=== PATIENT | male | born 1995 | race Caucasian/White ===

== ENCOUNTER 2021-07-10 09:26 | Outpatient (RCR) | payer OTHER, SELFPAY ==
--- NOTE | 2021-07-13 08:25 | PC.NURSE ---
Patient called the community sports coordinator this morning Yue Montgomery and let her know he will not be attending groups at [facility] as he does not feel this is a good fit for him and is taking a different route to get the help he feels he needs. [facility] staff aware.
== END 2021-07-13 09:28 | disposition home or self-care (01) ==
LOC: HO.PHPA 09:26
PROVIDERS: Visit Provider Psychiatry & Neurology Psychiatry
DX: F33.2 Major depressive disorder, recurrent severe without psychotic features (principal); F41.1 Generalized anxiety disorder; F42.9 Obsessive-compulsive disorder, unspecified; F12.90 Cannabis use, unspecified, uncomplicated
CPT/HCPCS: 90791

== ENCOUNTER 2024-05-18 14:13 | Outpatient (AMB) | payer OTHER, SELFPAY ==
--- NOTE | 2024-05-18 15:23 | MHC.OFFVIS ---
Vital Signs 05/18/24 15:24 Height 6 ft 3 in Weight 168 lb BMI 21.0 Pulse 98 Pulse Source Pulse Oximeter Pulse Oximetry (%) 98 Oxygen Delivery Method Room Air Intake Visit Reasons: Intake Allergies No Known Allergies Allergy (Verified 05/18/24 15:29) HPI HPI Intake: Details: He is interested in treatment for AUD. 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 He lives with roommates. His PCP is Martinez Ortiz of [facility] in [place]. He denies any other substance and no gambling. He has been drinking since election in December. He is interested in partial progarm He has OCD and takes Anafranil [facility] Medical History (Updated 05/18/24 @ 17:31 by Nelly Russ MD) Alcohol use disorder, moderate, dependence OCD (obsessive compulsive disorder) Social History Household Members: Significant Other and Other Household Members Other:: housemates Review of Systems Const All systems reviewed & are unremarkable except as noted in HPI and below Physical Exam Vital Signs: Last Vital Signs Pulse 98 05/18/24 15:24 Pulse Ox 98 05/18/24 15:24 Oxygen Delivery Method Room Air 05/18/24 15:24 BMI result Body Mass Index 21.0 Const General: cooperative Results AMB 14 Panel Urine Drug Screen Urine Marijuana (THC) Positive Last Edit by Kathy Grayson CMA on 05/18/24 15:32 Urine Cocaine Negative Last Edit by Kathy Grayson CMA on 05/18/24 15:32 Urine Morphine Negative Last Edit by Kathy Grayson CMA on 05/18/24 15:32 Urine Methamphetamine Negative Last Edit by Kathy Grayson CMA on 05/18/24 15:32 Urine Amphetamine Negative Last Edit by Kathy Grayson CMA on 05/18/24 15:32 Urine Benzodiazepine Negative Last Edit by Kathy Grayson CMA on 05/18/24 15:32 Urine Barbiturates Negative Last Edit by Kathy Grayson CMA on 05/18/24 15:32 Urine Methadone Negative Last Edit by Kathy Grayson CMA on 05/18/24 15:32 Urine Buprenorphine Negative Last Edit by Kathy Grayson CMA on 05/18/24 15:32 Urine Tricyclic Antidepressant Positive Last Edit by Kathy Grayson CMA on 05/18/24 15:32 Urine MDMA Negative Last Edit by Kathy Grayson CMA on 05/18/24 15:32 Urine Oxycodone Negative Last Edit by Kathy Grayson CMA on 05/18/24 15:32 Urine Phencyclidine Negative Last Edit by Kathy Grayson CMA on 05/18/24 15:32 Urine Propoxyphene Negative Last Edit by Kathy Grayson CMA on 05/18/24 15:32 Results Reviewed Results Reviewed: Laboratory Last Values POC Urine Buprenorphine Negative 05/18/24 15:31 POC Urine Morphine Negative 05/18/24 15:31 POC Urine Oxycodone Negative 05/18/24 15:31 POC Urine Methadone Negative 05/18/24 15:31 POC Urine Propoxyphene Negative 05/18/24 15:31 POC Urine Barbiturates Negative 05/18/24 15:31 POC U Tricyclic Antidpr Positive 05/18/24 15:31 POC Urine PCP Negative 05/18/24 15:31 POC Ur Amphetamines Negative 05/18/24 15:31 POC Ur Methamphetamine Negative 05/18/24 15:31 POC Urine MDMA Negative 05/18/24 15:31 POC Ur Benzodiazepine Negative 05/18/24 15:31 POC Urine Cocaine Negative 05/18/24 15:31 POC Ur Marijuana (THC) Positive 05/18/24 15:31 Assessment & Plan Assessment & Plan (1) Alcohol use disorder, moderate, dependence: Comment: He has no withdrawals or seizures He also vapes Code(s): F10.20 - Alcohol dependence, uncomplicated Category: Medical Plan thiamine,folate,mvi Naltrexone 50 mg po daily,probably shot in future. Orders: Orders AMB 14 Panel Urine Drug Screen Today Z51.81 - Encounter for therapeutic drug level monitoring Coding Level of Care Code New Pt Level 4 (85654) Diagnoses Alcohol use disorder, moderate, dependence F10.20
[2024-05-18 15:24] VITALS: PULSE 98; O2SAT 98; BMI 21.0
== END 2024-05-18 16:01 | disposition home or self-care (01) ==
PROVIDERS: Visit Provider Internal Medicine
DX: F10.20 Alcohol dependence, uncomplicated (principal); Z51.81 Encounter for therapeutic drug level monitoring
CPT/HCPCS: 99204

== ENCOUNTER → 2024-05-18 14:13 | Outpatient (BNVA) | payer OTHER, SELFPAY | DX: F10.20 Alcohol dependence, uncomplicated (principal) | CPT/HCPCS: 80307; 99202 ==

== ENCOUNTER 2024-06-15 15:48 | Outpatient (AMB) | payer OTHER, SELFPAY ==
--- OUTSIDE RECORDS SUMMARY | 2024-06-15 15:50 | XMS_ITS | Clinical Summary ---
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 FLUoxetine (PROZAC) 10 MG capsule TAKE 3 TABLETS BY MOTUH DAILY 90 capsule 10/27/2015 Active cloNIDine HCl (CATAPRES) 0.1 MG tablet TAKE 1 TABLET BY MOUTH TWICE A DAY 60 tablet 10/27/2015 Active Social History Tobacco Use Types Packs/Day Years Used Date Smoking Tobacco: Never Assessed Sex and Gender Information Value Date Recorded Sex Assigned at Not on file Legal Sex Male 4:22 PM EST Gender Identity Not on file Sexual Orientation Not on file Plan of Treatment Not on file [facility] [employer] Care Teams Rotary Rig Engine Operator Relationship Specialty Start Date End Date Ok Bradley MD PCP - General Family Medicine 07/04/14
--- OUTSIDE RECORDS SUMMARY | 2024-06-15 15:50 | XMS_ITS | Data Portability ---
Author Organization [facility] [address] Address [address] [place] [address] Assessment No assessment recorded. Plan of Treatment Reminders Order Date Submit Date Provider Last Modified By Organization Details Last Modified Time Details Appointments None recorded. Lab rapid strep group A, throat 2023 024 [email or web address] [facility] [address], [address] [place], [address], 18:27:56 streptococc us group A, culture, throat 2023 024 [place] [facility] ([facility], [address] [place] [address], [place], [address], 14:05:49 Referral None recorded. Procedures None recorded. Surgeries None recorded. Imaging None recorded. Medication Orders None recorded. Patient TargetsNo targets recorded. Patient Instructions Encounter Date Encounter Id Patient Instructions Last Modified By Organization Details Last Modified Time 10/07/2023 [id number] sore throat: car e instructions [email or web address] Not available 10/07/2023 18:27:55 Reason for Referral None Reported. Results Created Date Observation Date Name Description Value Unit Range Abnormal Flag Note LastModifiedBy Organization Detail LastModifiedTime 10/07/19 24 10/09/2023 BETA STREP GP A CULTU RE beta strep gp A culture COMMEN T abnormal Beta- hemol ytic colon ies, not group A Strep tococ cus isola ana m. Refer ence Range : Negat mattie Penic illin and ampic illin are drugs of choi e for treat ment of beta- hemol ytic strep tococ claudio infec tions . Susce ptibi lity testi ng of penic illin s and other beta- lacta m agent s appro hamzah by the FDA for treat ment of beta- hemol ytic strep tococ claudio infec tions need not be perfo rmed routi bar becau se nonsu scept ible isola rambo are extre guanaco rare in any beta- hemol ytic strep tococ cus and have not been repor ana m for Strep tococ cus pyoge daniel (grou p A). (CLSI ) Not Available [facility] ([facility]) [address] [facility], [place], [address], 10/09/2023 14:05:49 10/07/1910/07/2023 rapid strep group A, throa t Unknown Analyte negati ve Not Available [facility] [address] [place], [address], 10/07/2023 18:22:30 10/07/1910/07/2023 rapid strep group A, throa t Unknown Analyte yes Not Available _ [facility] [address] [place], [address], 10/07/2023 18:22:30 Result Notes None recorded. Problems No Known Problems Medical Equipment None Reported. Allergies No known drug allergies Medications Name Sig Start Date Stop Date Status Note LastModified by Organization Details LastModified Time amoxicillin 500 mg capsule Take 1 capsule every 12 hours by oral route as directed for 10 days, for Strep throat. 2023 active Not Available Not Available Not Avai lable estradiol 2 mg tablet TAKE TWO TABLETS BY MOUTH EVERY DAY active Not Available Not Available No t Available Vitals Date Recorded Body height Body weight Oxygen saturation Oxygen saturation in Arterial blood by Pulse oximetry Pain severity - 0-10 verbal numeric rating [Score] - Reported Heart rate Respiratory rate Body temperature Systolic blood pressure Diastolic blood pressure Provider Name and Address Organization Details Last Updated DateTime 4 190.5 cm 44185.8 9 g 98 % 98 % 3 77 /min 18 /min 97.8 [degF] 112 mm[Hg] 77 mm[Hg] Rita Kang PA - [facility] 18:19:52 Social History Question Answer Notes LastModified by Organizat ion Details LastModified Time Tobacco Smoking Status Never Smoker [facility] Bates - [facility] 10/07/2023 18:22:17 What Is Your Level Of Alcohol Consumption? None Information not available 10/07/2023 Are You Currently Employed? Yes [email or web address] Information not available 10/07/2023 Have You Had A Flu Shot This Season? Yes [email or web address] Information not available 10/07/2023 Are You Passively Exposed To Smoke? No [email or web address] Information no t available 10/07/2023 Do You Use Any Illicit Or Recreational Drugs? No [email or web address] Information not available 10/07/2023 Have You Recently Traveled Abroad? No [email or web address] Information not available 10/07/2023 Do You Or Have You Ever Used Any Other Forms Of Tobacco Or Nicotine? No [email or web address] Information not available 10/07/2023 Sex: Unknown Functional Status None recorded. Mental Status None recorded. Family History Nothing Reported. Medical History No medical history recorded. Past Encounters Encounter ID Performer Location Encounter Start Date Encounter Closed Date Diagnosis/Indication Diagnosis SNOMED-CT Code Diagnosis ICD10 Code Diagnosis Note [id number] [facility] [address] [facility] [address] [place] [address] 10/07/2023 18:05:56 10/07/2023 18:29:26 Acute pharyngitis 323710708 J02.9 Based on your Presentati on, Exam, and Lab Testing you are being diagnosed with Pharyngiti s. Your Rapid Strep Test was Negative. Most likely your sore throat is being caused by a virus, post nasal drip, or silent acid reflux. I am going to send a Throat Culture to the lab for you to make sure you don't have a different form of strep in your throat. This will take about 72 hours for that result to return. We will contact you if it positive - if for some reason you don't get a copy of your results or hear from us - please contact our office. The following are my other recommenda tions to help with symptoms and is important for this diagnosis: 1. Take Ibuprofen or Tylenol if you do not have any allergies to these medication s. If you take a blood thinner you should not take NSAIDS like Ibuprofen. These medication will help with the inflammati on in your respirator y tract which should help the cough. (I would alternate between Tylenol 650 mg and your Ibuprofen 600 mg every 4 hours)2. Steroid nasal sprays like Flonase or Nasonex (or generic) can help with postnasal drainage2. Do not take any Cold Medication s that have a Decongesta nt in it - this will dry out your throat and make the sore throat worse.3. Drinking Hot Tea with honey can help coat and soothe your throat. I would be seen again if you develop any of the following symptoms.1 . Fever > 101.02. Stiff neck - where you can't turn your neck3. Trouble swallowing your saliva - drooling4. Swelling of a lymph node in your throat that is painful to touch5. Difficulty breathing6 . Severe Headache Thank you for using [facility] today, please feel free to contact our office if you have any questions or concerns. Health Concerns Section Related Observation LastModified by Organization Detai ls LastModified Time None Recorded Concern Status LastModified by Organization Details LastModified Time None Recorded Advance Directives Directive None Recorded Payers Insurance Date Sequence Insurance Name Policy Number Policy Price Covered Member ID Price Member ID Guarantor Name 10/07/2023 1 [facility] [place] [facility] Faustino Zepeda [id number] Faustino Zepeda Notes Date Note Type Note Provider Name and Address Organization Details Recorded Time 10/07/2023 text/html 28 y/o male here with sore throat for the past day, 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
--- NOTE | 2024-06-15 15:53 | MHC.OFFVIS ---
Intake Visit Reasons: MAT Allergies No Known Allergies Allergy (Verified 06/16/24 14:27) HPI HPI MAT: Details: He is depressed because Thuy is President and he doesnt have a girlfriend. He has no SI or HI He doesnt want to wait in ER for crisis. He has a therapist. He doesnt want any additional medication. [facility] Medical History Alcohol use disorder, moderate, dependence OCD (obsessive compulsive disorder) Social History Household Members: Significant Other and Other Household Members Other:: housemates Smoked in Last 30 Days: No Use of substances other than those prescribed or required for medical reasons: Yes Substance Use Type: Marijuana Substance Use Frequency: Occasionally Advance Directives: No Advance Directives Information Provided: No Review of Systems Const All systems reviewed & are unremarkable except as noted in HPI and below Physical Exam Const General: cooperative Assessment & Plan Assessment & Plan (1) Alcohol use disorder, moderate, dependence: Comment: He denies alcohol use at this time,bothered by depression. Code(s): F10.20 - Alcohol dependence, uncomplicated Category: Medical Plan Come to ER for psych intake for depression if not feeling better or if SI or HI. Otherwise see therapist and see us as scheduled. Coding Level of Care Code Est Pt Level 3 (80122) Diagnoses Alcohol use disorder, moderate, dependence F10.20
== END 2024-06-15 17:45 | disposition home or self-care (01) ==
LOC: HO.HCC 15:49
PROVIDERS: Visit Provider Internal Medicine
DX: F10.20 Alcohol dependence, uncomplicated (principal)
CPT/HCPCS: 99213

== ENCOUNTER → 2024-06-15 15:48 | Outpatient (BNVA) | payer OTHER, SELFPAY | PROVIDERS: Visit Provider Internal Medicine | DX: F10.20 Alcohol dependence, uncomplicated (principal) | CPT/HCPCS: 99212 ==

== ENCOUNTER 2024-06-16 14:08 | Inpatient (IN) | payer OTHER, SELFPAY ==
[2024-06-16 14:23] VITALS: BP 136/96; PULSE 125; RESP 18; TEMP 36.1; O2SAT 99; BMI 24.4
[2024-06-16 14:29] VITALS: RESP 16
--- NOTE | 2024-06-16 14:32 | PC.NURSE ---
Pt presents to the emergency department today via EMS from [facility] in [place]. Pt reports that he went to [facility] in [place] to seek out ACCS (respite). When asked why he was seeking ACCS, he originally stated Its none of your [employer] business . 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 Pt reports a history of inpatient [place], [place] [facility] [place] He also endorses no history of going to ACCS. Per S12a, pt was making suicidal statements with a plan, which he denies currently. S12 also reports that patient has not been eating and has been very impulsive Pt endorses daily drinking for the better part of the last year. He denies a history of alcohol withdrawal, reports last drink was yesterday. Pt currently agitated, pacing around BH pod, refusing to engage in meaningful conversation with this RN Denies suicidal ideation, homicidal ideation, hallucinations of any form
--- NOTE | 2024-06-16 14:52 | PC.NURSE ---
Addendum entered by Cammie Yeager 06/16/24 14:57: pt has quarter size bruise on center of the forehead which he did not have prior to hitting his head on the ground. Pt refusing to allow this RN to evaluate Original Note: Pt observed to be hitting his head on the wall, pt then stopped on his own but then sat down on the floor and started hitting his head on the floor. Pt redirected by security sammy and this RN to bedside
--- NOTE | 2024-06-16 14:54 | ED_ITS ---
HPI - Psych General Chief Complaint: Psychiatric Symptoms Stated Complaint: SECTION 12 Time Seen by Provider: 06/16/24 14:54 Source: patient and RN notes reviewed Mode of arrival: ambulatory Limitations: no limitations History of Present Illness ED Provider: Varsha Pulido PA-C [facility] Narrative: This is a 29-year-old male, with a history of OCD, and alcohol use disorder, who presents emergency department on section 12 via EMS from [facility] in [place]. on my assessment, patient states that he would like to be discharged, and he is unsure why he is here. He states that he presented to [facility] with hopes into getting into a respite, at that time the see HD staff members had called 911. patient reports that he has no suicidal or homicidal ideation. No auditory visual hallucinations. He states daily alcohol use, typically drinks 4 beers per day, no history of alcohol withdrawal. He also uses marijuana, no other drug use. Denies any physical symptoms. 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 When asked about why he was doing this, I asked if he was frustrated and he agreed. He has no vision changes, no severe headache or dizziness. No LOC. No nausea or vomiting. No other complaints or concerns at this time. Relieving factors: none Exacerbating factors: none Context: recent alcohol abuse Treatments prior to arrival: other ( Section 12) Related Data Home Medications ?Medication ?Instructions ?Recorded ?Confirmed clomipramine 75 mg capsule 150 mg PO BEDTIME 06/16/24 06/16/24 Allergies Allergy/AdvReac Type Severity Reaction Status Date / Time No Known Allergies Allergy Verified 06/16/24 14:27 Review of Systems 2 Review of Systems: Yes all other systems are reviewed and are negative Constitutional: Constitutional: Reports as per [facility] Past Medical History Medical History (Updated 05/18/24 @ 17:31 by Nelly Russ MD) Alcohol use disorder, moderate, dependence OCD (obsessive compulsive disorder) Social History Social History Household Members: Significant Other and Other Household Members Other:: housemates Smoked in Last 30 Days: No Use of substances other than those prescribed or required for medical reasons: Yes Substance Use Type: Marijuana Substance Use Frequency: Occasionally Physical Exam 2 Vital Signs: Vital Signs: Last Vital Signs Temp 97.0 F 06/16/24 14:23 Pulse 125 H 06/16/24 14:23 Resp 16 06/16/24 14:29 BP 136/96 H 06/16/24 14:23 Pulse Ox 99 06/16/24 14:23 O2 Del Method Room Air 06/16/24 14:23 BMI result Body Mass Index 24.4 Const: General: cooperative, comfortable and no acute distress O rientation/consciousness: patient oriented x3 Limitations: no limitations HEENT: Head: Yes normal to inspection, Yes normocephalic and Yes atraumatic Ears: hearing grossly normal bilaterally General nose exam: Normal external nose present Face and sinus: Yes normal facial exam Mouth: Normal oral and palatal mucosa present, oropharynx normal and moist mucous membranes Throat: Yes posterior oropharynx normal Eyes: General: appearance normal, both eyes and all related structures E yelids: Yes eyelids normal Conjunctivae: conjunctivae normal Sclerae: s clerae normal Pupils: Equal, round and reactive pupils present EOM: EOMs intact bilaterally Neck: Neck: Yes normal visual inspection, Yes full ROM and Yes no lymphadenopathy Lymphatic: no lymphadenopathy noted Chest: Chest palpation & inspection: normal inspection of the chest Resp: Effort & Inspection: normal respiratory effort and able to speak in complete sentences Auscultation: clear to auscultation bilaterally, no crackles, no rales, no rhonchi and no wheezes Cardio: Rate: regular rate Rhythm: regular rhythm Heart sounds: S1 normal heart sound present and S2 normal heart sound present GI: Inspection: Yes normal to inspection Skin: Other: middle of forehead there is a superficial abrasion noted, no active bleeding. General skin exam: no rashes or lesions noted Trauma: no lacerations or abrasions Wounds: no wounds Neuro: General: patient oriented x3 and moves all extremities Cranial nerves: Yes Equal, round and reactive pupils present Extrem: General: Yes normal to inspection Right upper extremity: normal to inspection Left upper extremity: normal to inspection Right lower extremity: normal to inspection Left lower extremity: normal to inspection Psych: Appearance: well kempt Mental Status: mental status grossly normal Speech and movement: Pressured speech present Affect: Anxious affect present, Hostile affect present and Blunted affect present Attitude: Guarded attititude/behavior present and Avoids eye contact (attititude/behavior) T hought process: Normal thought process present Insight: Limited insight present (Psych) Judgement: Limited judgement present (Psych) Medications Administered Discontinued Medications Generic Name Dose Route Start Last Admin Trade Name Unique PRN Reason Stop Dose Admin Lorazepam 2 mg 06/16/24 17:36 06/16/24 17:45 Lorazepam 1 Mg Tablet PO 06/16/24 17:37 2 mg ONCE ONE Administration Medical Decision Making Medical Decision Making [facility] Narrative: This is a 29-year-old male, with a history of OCD, who presents emergency department on section 12 from [facility] in [place]. On arrival, patient is hypertensive at 136/96, pulse 125. Patient is guarded, stating that he wants to be discharge and he is not sure why he is here. he has no suicidal or homicidal ideation. Auditory or visual hallucination. General daily alcohol use, last use yesterday, no history of alcohol withdrawal. History of marijuana use, other baez no other drug use. He has no physical complaints. Differential diagnoses include anxiety, depression, medication noncompliance, SI, HI, Psychosis. Will obtain labs, UA, and patient will be seen by the care team. Course: 2 - labs returned, no leukocytosis, stable H&H, chemistry revealing slight elevation in T bilirubin, otherwise unremarkable. Urine without any signs of infection. Positive marijuana. patient placed in physician observation pending psychiatric bed search. 1824 - patient is starting to escalate, coronary staff and threatening staff, he was agreeable to taking oral Ativan. Approximately 30 minutes later, he is now escalating, placing mattress and front of camera, trying to jump off his bed, given this, patient medicated with Zyprexa 5 mg IM. Pending care team consultation. We will continue to monitor. Differential Diagnosis Differential Diagnoses: The differential diagnosis associated with the presentation includes See above Admission/Observation Consideration of admission/observation: Escalation of care including admission/observation considered Lab Data [facility] Lab Attestation statement: I reviewed the patient's lab results. See MDM and course 06/16/24 14:58 06/16/24 14:58 Labs: Lab Results 06/16/24 06/16/24 Range/Units 14:58 15:17 WBC 9.1 (4.8-10.8) X10*3/uL RBC 5.23 (4.60-5.80) X10*6/uL Hgb 16.3 (14.0-18.0) g/dl Hct 45.1 (42.0-52.0) % MCV 86.2 (80.0-98.0) fL MCH 31.2 (27.0-33.0) pg MCHC 36.1 H (31.0-36.0) g/dl RDW 11.7 (11.0-16.0) % Plt Count 282 (160-400) X10*3/uL MPV 9.1 L (9.4-12.4) fL Immature Gran % (Auto) 0.4 (0.0-0.4) % Neut % (Auto) 64.7 (45-73) % Lymph % (Auto) 25.4 (20-40) % [place] % (Auto) 7.9 (2-11) % Eos % (Auto) 1.2 (0-4) % Baso % (Auto) 0.4 (0-2) % Lymph # (Auto) 2.3 (1.2-4.9) X10*3/uL [place] # (Auto) 0.7 (0.1-1.2) X10*3/uL Eos # (Auto) 0.1 (0.0-0.4) X10*3/uL Baso # (Auto) 0.0 (0.0-0.2) X10*3/uL Abs Immat Gran (auto) 0.04 H (0.00-0.03) X10*3/uL Absolute Neuts (auto) 5.9 (2.0-8.3) x10*3/uL Absolute Nucleated RBC 0.000 (0.0-0.012) X10*3/uL Nucleated RBC % (auto) 0.0 (0.0-0.2) /100WBC Sodium 140 (135-145) mmol/L Potassium 3.7 (3.3-5.1) mmol/L Chloride 100 (96-108) mmol/L Carbon Dioxide 28 (22-29) mmol/L Anion Gap 16 (12-20) BUN 12 (9-16) mg/dL Creatinine 0.85 (0.5-1.4) mg/dL Estim Creat Clear Calc 139.4 Estimated GFR > 60 Random Glucose 106 (60-115) mg/dL Calcium 9.6 (8.4-10.2) mg/dL Total Bilirubin 1.8 H (0.0-1.0) mg/dL AST 31 (5-37) U/L ALT 28 (0-40) U/L Alkaline Phosphatase 74 (39-117) U/L Total Protein 8.4 H (6.5-8.0) g/dL Albumin 4.9 (3.5-5.0) g/dL Urine Color Yellow Urine Appearance Clear Urine pH 7.0 (5.0-9.0) Ur Specific [place] 1.020 (1.005-1.025) Urine Protein Trace (Neg-Trace) mg/dL Urine Glucose (UA) Negative (Negative) mg/dL Urine Ketones Negative (Negative) mg/dL Urine Blood Negative (Negative) Urine Nitrite Negative (Negative) Ur Leukocyte Esterase Negative (Negative) Urine Opiates Screen Not Detected (Not Detect) Ur Buprenorphine Scrn Not Detected (Not Detect) ng/mL Ur Oxycodone Screen Not Detected (Not Detect) ng/mL Urine Methadone Screen Not Detected (Not Detect) ng/mL Urine Fentanyl Screen Not Detected (Not Detect) Ur Barbiturates Screen Not Detected (Not Detect) Ur Phencyclidine Scrn Not Detected (Not Detect) Ur Amphetamines Screen Not Detected (Not Detect) U Benzodiazepines Scrn Not Detected (Not Detect) Urine Cocaine Screen Not Detected (Not Detect) U Marijuana (THC) Screen POSITIVE H (Not Detect) Ethyl Alcohol < 10 mg/dL Radiology Impression Discussion of test interpretation with radiology: I have reviewed the radiologist's reading. External Record Review External record reviewed: Inpatient record, Office record, Outpatient record, Prior outpatient labs, Prior outpatient radiology, Primary care record and Outside ED record Discharge Plan Discharge Prescriptions: No Action clomipramine 75 mg capsule 150 mg PO BEDTIME Interventions: [place]-Suicide Risk Severity Scale Last Done: 06/16/24 14:56 Print Language: Yoruba
[2024-06-16 15:03] LABS: MANUAL DIFF FLAG NO
--- NOTE | 2024-06-16 15:04 | PC.NURSE ---
PA at bedside evaling patient at this time
[2024-06-16 15:05] LABS: Basophils Percent Auto 0.4 % (0-2); Eosinophils Absolute Auto 0.1 X10*3/uL (0.0-0.4); Eosinophils Percent Auto 1.2 % (0-4); Hematocrit 45.1 % (42.0-52.0); Hemoglobin 16.3 g/dl (14.0-18.0); Imm Gran Abs Auto 0.04 X10*3/uL (0.00-0.03); Imm Gran Pct Auto 0.4 % (0.0-0.4); Lymphocytes Absolute Auto 2.3 X10*3/uL (1.2-4.9); Lymphocytes Percent Auto 25.4 % (20-40); Mean Corpuscular HGB Conc 36.1 g/dl (31.0-36.0); Mean Corpuscular Hemoglobin 31.2 pg (27.0-33.0); Mean Corpuscular Volume 86.2 fL (80.0-98.0); Mean Platelet Volume 9.1 fL (9.4-12.4); Monocytes Absolute Auto 0.7 X10*3/uL (0.1-1.2); Monocytes Percent Auto 7.9 % (2-11); Neutrophils Absolute Auto 5.9 x10*3/uL (2.0-8.3); Neutrophils Percent Auto 64.7 % (45-73); Platelet Count 282 X10*3/uL (160-400); Red Blood Count 5.23 X10*6/uL (4.60-5.80); Red Cell Distribution Width 11.7 % (11.0-16.0); White Blood Count 9.1 X10*3/uL (4.8-10.8)
[2024-06-16 15:32] LABS: Alanine Aminotransferase 28 U/L (0-40); Albumin Level 4.9 g/dL (3.5-5.0); Alkaline Phosphatase 74 U/L (39-117); Anion Gap 16 (12-20); Aspartate Amino Transferase 31 U/L (5-37); Bilirubin Total 1.8 mg/dL (0.0-1.0); Blood Urea Nitrogen 12 mg/dL (9-16); Calcium 9.6 mg/dL (8.4-10.2); Carbon Dioxide 28 mmol/L (22-29); Chloride 100 mmol/L (96-108); Creatinine Clr Calc Pharmacy 139.4; Estimated Glomerular Filt Rate > 60; Ethanol < 10 mg/dL; Glucose Random 106 mg/dL (60-115); Potassium 3.7 mmol/L (3.3-5.1); Sodium 140 mmol/L (135-145); Total Protein 8.4 g/dL (6.5-8.0)
[2024-06-16 15:37] LABS: Appearance Urine Clear; Color Urine Yellow; Glucose Urine UA Negative (Negative); Leukocyte Esterase Urine Negative (Negative); Nitrite Urine Negative (Negative); Urine Blood Negative (Negative); Urine Ketones Negative (Negative); Urine Protein Trace mg/dL (Neg-Trace)
[2024-06-16 15:46] LABS: Amphetamine Screen Urine Not Detected (Not Detect); Barbiturates, Urine Not Detected (Not Detect); Benzodiazepines Screen Urine Not Detected (Not Detect); Buprenorphine Scr Not Detected (Not Detect); Cannabinoid Screen Urine POSITIVE (Not Detect); Cocaine Screen Urine Not Detected (Not Detect); Fentanyl, urine Not Detected (Not Detect); Methadone Screen, Urine Not Detected (Not Detect); Opiate Screen Urine Not Detected (Not Detect); Oxycodone Screen Urine Not Detected (Not Detect); Phencyclidine Screen Urine Not Detected (Not Detect)
--- NOTE | 2024-06-16 15:46 | PC.NURSE ---
Pt pacing around BH pod, pt was also observed attempting to pull the bedside table from the wall. Pt self re-directing at this time
--- NOTE | 2024-06-16 16:35 | PC.NURSE ---
pt observed to be tying blanket up, but stopped, additional observation placed on patient for safety
--- NOTE | 2024-06-16 16:43 | MHC.EDTECH ---
This tech offered patient an ice pack for his head and something to eat. Patient declined icepack. Patient did ask for food. This tech brought back crackers/peanut butter, cheese sticks, pudding. Patient stated I can't eat these, they're cold. Cold items removed.
--- NOTE | 2024-06-16 17:09 | PC.NURSE ---
Casi, CARE team clinician down to inform patient of IPLOC status, pt reporting frustration with this and requesting wood heel back liner. pt being provided with patient advocacy line
--- NOTE | 2024-06-16 17:17 | PC.NURSE ---
Patient provided with the number for the office of patient protection. Gurinder Gomez RN looped in for continuity of care
[2024-06-16] MEDS: LORazepam 1 MG TABLET 2 MG PO (17:45)
--- NOTE | 2024-06-16 17:51 | PC.NURSE ---
Pt beginning to escalate, demanding to be medications and restrained. [facility] techs at bedside to de-escalate. Pt then ran into his room and began hitting his head and fists against the wall. This RN called Security to bedside, VLADISLAV Maddox also at bedside. pt willingly took PO Ativan. Pt remains mildly agitated, pacing around room.
[2024-06-16] MEDS: OLANZapine 10 MG VIAL 5 MG IM (18:20)
--- NOTE | 2024-06-16 18:38 | PC.NURSE ---
pt continuing to escalate, verbally threatening to staff, stating you are holding me against my will, I am not going to let anyone go from this hostage situation . Pt then hitting head on the wall again. Pt moved mattress in front of camera in room and standing on chair to look out window. This RN requested patient do not do either of those things, pt then stared at the wall, wringing his hands. This RN contacted VLADISLAV Maddox, plan for IM of Zyprexa
--- NOTE | 2024-06-16 19:11 | PC.NURSE ---
patient appears to remain at rest presently, not allowing vs at this time and somnolent, appears in no distress, was given im medications d/t unsafe bx, gesturing with trying to block cameras and tying bedsheets into knots gesturing as if he would harm self and not abating when redirected.
[2024-06-17] MEDS: clomiPRAMINE HCl 25 MG CAPSULE 150 MG PO (01:37)
--- NOTE | 2024-06-17 01:39 | PC.NURSE ---
patient awoke and t/w offered him hs meds, after administration is anyone here? t/w told him clinical staff would be here in the am to reassess him.
[2024-06-17 05:47] VITALS: RESP 16
--- NOTE | 2024-06-17 07:27 | PC.NURSE ---
ASSUMED CARE OF PT AT 0645. PT REPORTS FEELING AGITATED/ANXIOUS. PT IS CURRENTLY REMAINING IN BEHAVIORAL CONTROL. RN REQUESTED PRN PO MEDICATIONS. PT IS SITTING ON BED ROCKING ANXIOUSLY.
[2024-06-17 07:28] VITALS: BP 141/86; PULSE 118; RESP 16; TEMP 36.2; O2SAT 100
[2024-06-17] MEDS: OLANZapine 10 MG TABLET PO (07:38)
[2024-06-17] MEDS: LORazepam 0.5 MG TABLET PO ×2 (09:09→10:16)
[2024-06-17] MEDS: diphenhydrAMINE HCL 25 MG CAPSULE PO (09:09)
--- NOTE | 2024-06-17 09:45 | MHC.EDTECH ---
ambulated to bathroom to shower, AM care done , RN aware
[2024-06-17] MEDS: diazePAM 2 MG TABLET PO (14:00)
--- NOTE | 2024-06-17 15:31 | PHA.MEDREC ---
Addendum entered by Kayy Nicole RPh 06/17/24 15:36: reviewed by [facility], located within [facility]. Original Note: Pharmacy Consult ? Medication Reconciliation Pharmacy has completed the medication reconciliation. Nurse Mare confirmed with patient that the only medication he is taking is Clomipramine despite recent fills for penicillin 500 mg tid x10 days and naltrexone 50 mg daily.
[2024-06-17] MEDS: OLANZapine ODT 10 MG TAB.RAPDIS TRANSLINGU (15:45)
[2024-06-17] MEDS: clonazePAM 1 MG TABLET PO (15:45)
[2024-06-17 16:05] VITALS: BP 131/81; PULSE 90; RESP 16; TEMP 36.4; O2SAT 100
[2024-06-17 22:37] VITALS: RESP 14
--- NOTE | 2024-06-18 | ECG_ITS ---
Test Reason : CHECK QTC Blood Pressure : */* mmHG Vent. Rate : 120 BPM Atrial Rate : 120 BPM P-R Int : 130 ms QRS Dur : 80 ms QT Int : 298 ms P-R-T Axes : 80 -56 77 degrees QTcB Int : 421 ms Sinus tachycardia Biatrial enlargement Pulmonary disease pattern Left anterior fascicular block Left ventricular hypertrophy ( [place] product ) Abnormal ECG No previous ECGs available Referred By: Varsha Pulido Electronically Signed By: XENA ENCARNACION MD
[2024-06-18] MEDS: clomiPRAMINE HCl 25 MG CAPSULE 150 MG PO ×2 (00:09→20:32)
--- NOTE | 2024-06-18 00:11 | PC.NURSE ---
pt awoke from sleeping at this time. agitated with tech. pt then accepted meds calmly from this nurse. drank 8oz water. pressured responses from patient when asked if staff can get anything for them. two warm blankets provided, accepted by pt. pt states needs are met, declines removing trash from side table.
[2024-06-18 06:06] VITALS: BP 132/84; PULSE 83; RESP 16; TEMP 36.4; O2SAT 97
[2024-06-18] MEDS: LORazepam 1 MG TABLET 2 MG PO (06:31)
--- NOTE | 2024-06-18 06:35 | MHC.CARE ---
06/17/24, 1335:? CARE Team speaks with pt?s Mother. She reports that pt has a hx of difficulty regulating his moods, he will have a thought, such as ?I?m trans?, ?I?m an alcoholic? and will perseverate and get caught up in a mental loop and spiral out of control.? She reports that this is due to his OCD.? When spiraling, pt is prone to becoming irrational. She reports no concerns for his ability to be safe, or keep himself safe, she reports that he has managed to do so, thus far.? She has reported no known hx of attempts or endorsing of SI to her.? He has no hx of dangerousness. She reports a lengthy hx of multiple inpatient admissions with the most recent being [facility] in [place].? She reports that some inpatient admissions have been difficult for him and potentially traumatizing due to the manner in which he was treated.? He also has multiple IOP admissions and day program admissions. She expressed concerns that he is not getting any better.? She believes an inpatient admission would be beneficial and suggested that he may benefit from wrap around services as when he is stable he does very well.
--- NOTE | 2024-06-18 07:18 | PC.NURSE ---
Assumed care of patient at 0645, patient appears to be in no apparent distress this am, sitting in milieu eating breakfast at this time. Continue plan of care for CARE team wilber
--- NOTE | 2024-06-18 09:03 | PC.NURSE ---
pt pacing around BH pod, in and out of his room, appearing frustrated. this RN approached patient, he reports that he is having intense anxiety. MD aware. Pt reports that ativan has not been helpful but the ODT Zyprexa that he received yesterday was beneficial.
[2024-06-18] MEDS: OLANZapine ODT 10 MG TAB.RAPDIS TRANSLINGU (09:10)
[2024-06-18] MEDS: diphenhydrAMINE HCL 25 MG CAPSULE PO (09:10)
--- NOTE | 2024-06-18 10:41 | PC.NURSE ---
pt increasingly agitated, requesting additional medication, PO Alprazolam ordered from
[2024-06-18] MEDS: ALPRAZolam 0.5 MG TABLET PO (10:45)
--- NOTE | 2024-06-18 14:21 | PHA.MEDREC ---
Pharmacy Consult ? Medication Reconciliation Pharmacy has reviewed the medication reconciliation completed by nursing.
[2024-06-18 16:14] VITALS: BP 136/86; PULSE 76; RESP 16; TEMP 36.9; O2SAT 96
[2024-06-18 16:18] VITALS: BMI 20.5
--- NOTE | 2024-06-18 18:35 | PC.ADMIT ---
This is the 1st admission for this 29 y.o. male to [facility] at [facility]. Referred by [facility] Care Team with Dx; Unspecified Depressive D/O. Nurse to nurse done with [facility] ED pod prior to admission. Admission orders received from Dr Stephen. Meds reconciled by ED. Arrived on unit at 1600 and placed on 15 min safety checks. Tox screen positive for Marijuana THC, ETOH <10. Reports daily use of marijuana via vape, last use 06/16/24, drinking 5-6 beers or canned cocktails 2-3x week. Reports etoh has been increasing x2 months, last use 06/14/24. Denies s/sx etoh withdrawal. CIWA ordered. Denies current medical issues. Precipitating events to admission: Pt contacted [facility] requesting an assessment. Reported struggling with persistent Si and had plan to use a rope, knife or firearm. Reported having the means and access to firearms. Reported intrusive sexual urges, desire for frequent sexual activity which interfered with daily functioning. During admission assessment pt denied mentioning anything about guns, continued to report intrusive sexual thoughts. Reported vague thoughts of hurting people he did not know like Mil Madrigal. Minimized statements re: SI by other means. While in ED Pod pt was striking head against wall and floor and observed tying blankets in knots gesturing to harm self. Acknowledges striking head, denies tying knots in blanket and gesturing. Light bruised area noted mid forehead due to striking head floor/wall. Anxiety/frustration noted during admission process. Increase in anxiety noted when a female pt approached to closely and not being able to receive his underwear which had straps and believed to pose safety issue. Hospital underwear previously provided and pt was utilizing. Had difficulty with staff's recommendations for coping strategies. Rates depression 6-7, anxiety #3 on scale 1-10(10 worse). Denies SI/HI currently. Denies AH/VH, reports strong internal monologue. Met with Dr Stephen and declined to sign CV. Current legal status Section 12B.
[2024-06-18 20:00] VITALS: BP 106/68; PULSE 90; RESP 16; TEMP 36.1; O2SAT 99
[2024-06-18] MEDS: traZODone HCL 50 MG TABLET PO ×2 (20:32→22:17)
[2024-06-18] MEDS: hydrOXYzine HCL 25 MG TABLET PO (22:17)
[2024-06-18] MEDS: LORazepam 1 MG TABLET PO (22:17)
--- NOTE | 2024-06-18 23:02 | PC.NURSE ---
Pt self harming hitting his head on the wall/ floor continuously, and crying loud.He states Nobody like me and I just want to hurt my self . CIWA was 9 @ 2000, PRN Ativan given. Pt was placed on 5 mins safety check.
[2024-06-18] MEDS: OLANZapine 5 MG TABLET PO (23:19)
[2024-06-19 07:00] VITALS: BP 124/77; PULSE 114; RESP 18; TEMP 36.4; O2SAT 99
[2024-06-19 07:54] LABS: Estimated Average Glucose 91 mg/dL; Hemoglobin A1C 117.6667 umol/L; Hemoglobin A1c % 4.8 % (<6.0); Total Hemoglobin (HGBA1C) 4021.3951 umol/L
[2024-06-19 08:05] LABS: Cholesterol 188 mg/dL (<200); HDL Cholesterol 67 mg/dL (>40); LDL Cholesterol Calculated 108 mg/dL (<100); Triglycerides 65 mg/dL (<150)
[2024-06-19 08:23] LABS: Thyroid Stimulating Hormone 0.99 uIU/mL (0.32-4.0)
[2024-06-19 08:34] LABS: Folate 12.4 ng/mL (> or = 4.0); Vitamin B12 510 pg/mL (200-900)
[2024-06-19] MEDS: Ziprasidone 20 MG CAPSULE PO (17:24)
[2024-06-19 20:00] VITALS: BP 131/91; PULSE 84; RESP 18; TEMP 36.8; O2SAT 100
[2024-06-19] MEDS: OLANZapine 10 MG TABLET PO (20:12)
[2024-06-19] MEDS: clomiPRAMINE HCl 25 MG CAPSULE 150 MG PO (20:13)
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
[2024-06-20 07:35] VITALS: BP 135/84; PULSE 96; RESP 16; TEMP 36.9; O2SAT 99
[2024-06-20] MEDS: Ziprasidone 20 MG CAPSULE PO ×2 (08:07→17:12)
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
[2024-06-20 19:32] VITALS: BP 133/96; PULSE 103; TEMP 36.7; O2SAT 97
[2024-06-20] MEDS: clomiPRAMINE HCl 25 MG CAPSULE 150 MG PO (20:20)
[2024-06-20] MEDS: OLANZapine 10 MG TABLET PO (20:20)
[2024-06-21 07:39] VITALS: BP 136/85; PULSE 105; RESP 16; TEMP 36.6; O2SAT 100
[2024-06-21] MEDS: Ziprasidone 20 MG CAPSULE PO (08:12)
--- NOTE | 2024-06-21 09:02 | MHC.RECOVRN ---
AUDIT-C Brief Intervention Pt had positive screen for unhealthy alcohol use on admission, subsequently met with t/w to discuss alcohol use and recovery supports/options . This sign writer letterer or painter met with patient to discuss current alcohol use and concerns related to increased risk of alcohol related problems. Pt reports consuming 4-6 pints of liquor a over the last 6 months.? He has been consuming alcohol since his teenage years but describes it as occasional use and the increase only started approx 6 months ago.? Discussed how alcohol use has impacted health, including negative impact on mental health and overall physical wellbeing. Discussed risk reduction strategies including drinking below the recommended limit. Provided pt with written resources including information on inpatient and outpatient treatment, IFRAH, harm reduction, and recovery coaching. Pt plans to follow up Recovery coaching and outpt. IFRAH on his own once home.? He is being D/C today around 10:30AM. ?Pt declines intervention, IFRAH, appt. for tx related to AUD, at this time.? .? ?Denies other questions or concerns at this time.
== END 2024-06-21 10:35 | disposition home or self-care (01) | DRG 755 ==
LOC: HO.ED 06-18 08:59 → HO.PADLT16 06-18 13:35
PROVIDERS: Admitting Provider Psychiatry & Neurology Psychiatry; Emergency Provider Emergency Medicine; PCP Family Medicine; Visit Provider Psychiatry & Neurology Psychiatry
DX: F42.9 Obsessive-compulsive disorder, unspecified (principal); R45.851 Suicidal ideations; F10.20 Alcohol dependence, uncomplicated; F12.10 Cannabis abuse, uncomplicated; F65.9 Paraphilia, unspecified; Z62.810 Personal history of physical and sexual abuse in childhood; Z79.899 Other long term (current) drug therapy
CPT/HCPCS: 36415; 80053; 80061; 80307; 81003; 82607; 82746; 83036; 84439; 84443; 85025; 93005; 99285; J2359; S9485

== ENCOUNTER → 2024-06-18 08:27 | Outpatient (BNV) | payer OTHER, SELFPAY | PROVIDERS: Emergency Provider Emergency Medicine; PCP Family Medicine; Visit Provider Internal Medicine Cardiovascular Disease | DX: I51.7 Cardiomegaly (principal); J98.4 Other disorders of lung; I44.7 Left bundle-branch block, unspecified; R00.0 Tachycardia, unspecified | CPT/HCPCS: 93010 ==

== ENCOUNTER → 2024-06-18 13:33 | Outpatient (BNV) | payer OTHER, SELFPAY | PROVIDERS: Admitting Provider Psychiatry & Neurology Psychiatry; Emergency Provider Emergency Medicine; PCP Family Medicine; Visit Provider Psychiatry & Neurology Psychiatry | DX: F10.20 Alcohol dependence, uncomplicated (principal); F42.9 Obsessive-compulsive disorder, unspecified; F12.10 Cannabis abuse, uncomplicated; F65.9 Paraphilia, unspecified | CPT/HCPCS: 90792 ==

== ENCOUNTER 2024-08-28 09:27 | Outpatient (AMB) | payer OTHER, SELFPAY ==
[2024-08-28 09:36] VITALS: BP 120/78; PULSE 100; O2SAT 98; BMI 22.2
--- NOTE | 2024-08-28 09:36 | A.OFFVIS_ITS ---
<Statement entered by Casie Gasca RN - 08/28/24 10:49> Faustino presented today as a follow-up. Faustino presented as anxious and had an irritable edge. He reported that he had been taking Naltrexone 50 mg daily and that it helped when he took it and reported, ?I need to get the injection so that I don?t drink.? When asked if he wanted to stop drinking he initially said, ?no? and ?I don?t know? and became increasingly agitated. Upon chart review it was determined that Naltrexone had been ordered in May and then discontinued in June due to him not taking the medication. 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 It is clear that Juan R does not yet seem to be in an appropriate position for the? Vivitrol injection which he wanted, as he has not taken the oral Naltrexone consistently enough to evaluate its effects- nor does he want to stop drinking. Upon recommending the oral Naltrexone consistently for a few weeks with check ins and a follow-up in four weeks to assess his progress, he left the office and said that he is not stopping to make a follow-up appointment and left the office.? Vital Signs 08/28/24 09:36 Height 6 ft 3 in Weight 178 lb BMI 22.2 BP 120/78 Pulse 100 Pulse Oximetry (%) 98 Intake Visit Reasons: MAT Allergies No Known Allergies Allergy (Verified 08/28/24 09:38) HPI Comments Details: Patient is 29-year-old male who presents for a follow-up visit related to alcohol use disorder, first time with t/w. Information related by the registered nurse indicated the patient was taking naltrexone tablets 50 mg on a daily basis. Due to no active orders in the medical record the RN proceeded to call the pharmacy which reported the patient picked up a prescription for naltrexone tablets 50 mg, # 30 tablets on May of 2024 and had not returned for refills. When the RN proceeded to discuss this further with the patient he reported he had not been taking the naltrexone tablets 50 mg as prescribed and that he was not going to stop drinking alcohol and at the same time asked if he can be prescribed the Vivitrol injection. T/w proceeded to speak with the patient, RN present and emphasized the importance of taking naltrexone tablets 50 mg on a daily basis and the readiness to minimize alcohol consumption before proceeding to ordering Vivitrol. At this point during the visit the patient became visibly agitated, irritable and did not seem to comprehend the above-mentioned information. It was further explained, if the Vivitrol injection was to be ordered it would not be available due to prior authorization requirements by insurance. The patient demanded he wanted the injection now, which was not a possibility, at the present moment of the visit. [facility] Medical History Alcohol use disorder, moderate, dependence OCD (obsessive compulsive disorder) Social History Household Members: Friend(s) Household Members Other:: 4 males and 1 female share rent Housing: House Do you presently have visiting nurse or other home services: No Patient Tobacco Use Status: Never used Tobacco e-Cigarette/Vaping Use: Never Used Second Hand Smoke Exposure: No (n/a) Substance Use Type: Marijuana service: No Sexual orientation: Don't Know Physical Exam Vital Signs: Last Vital Signs Pulse 100 08/28/24 09:36 BP 120/78 08/28/24 09:36 Pulse Ox 98 08/28/24 09:36 BMI result Body Mass Index 22.2 Assessment & Plan Assessment & Plan (1) Alcohol use disorder, moderate, dependence: Comment: He denies alcohol use at this time,bothered by depression. Code(s): F10.20 - Alcohol dependence, uncomplicated Category: Medical Plan The plan of care is for the patient to continue on naltrexone tablets 50 mg daily (prescribed by a previous provider) on a daily basis and follow-up in 1 month for further evaluation and to determine readiness to proceed to a Vivitrol injection. Encouraged to minimize alcohol consumption. Patient Instructions: - Continue on naltrexone tablets 50 mg daily. - Minimize alcohol consumption. - Follow up in one month or sooner, if needed. - the patient refused to schedule a follow-up appointment stated not going to stop drinking and proceeded to walk out of the office area. Coding Level of Care Code Est Pt Level 4 (40846) Diagnoses Alcohol use disorder, moderate, dependence F10.20
--- OUTSIDE RECORDS SUMMARY | 2024-08-28 10:01 | XMS_ITS | Data Portability ---
Author Organization VLADISLAV Cueva [facility], [address] Address [address] [place] [address] Assessment No assessment recorded. Plan of Treatment Reminders Order Date Submit Date Provider Last Modified By Organization Details Last Modified Time Details Appointments None recorded. Lab rapid strep group A, throat 2023 024 [email or web address] [address], [address] [place], [address], 18:27:56 streptococc us group A, culture, throat 2023 024 CROSBY [facility] ([facility], [address] [place] [address], [place], [address], 14:05:49 Referral None recorded. Procedures None recorded. Surgeries None recorded. Imaging None recorded. Medication Orders None recorded. Patient TargetsNo targets recorded. Patient Instructions Encounter Date Encounter Id Patient Instructions Last Modified By Organization Details Last Modified Time 10/07/2023 [id number] sore throat: car e instructions [email or web address] Not [...] p A). (CL[facility] ) Not Available [facility] ([facility]) [address], [place], [address], 10/09/2023 14:05:49 10/07/1910/07/2023 rapid strep group A, throa t Unknown Analyte negati ve Not Available [facility] [address] [place], [address], 10/07/2023 18:22:30 10/07/1910/07/2023 rapid strep group A, throa t Unknown Analyte yes Not Available [facility] [address] [place], [address], 10/07/2023 18:22:30 Result Notes None recorded. Problems [...] saturation in Arterial blood by Pulse oximetry Heart rate Respiratory rate Body temperature Systolic And Diastolic Provider Name and Address Organization Details Last Updated DateTime 4 190.5 cm 68579.8 9 g 98 % 98 % 77 /min 18 /min 97.8 [degF] 112/77 mm[Hg] Rita Kang PA - [facility] 4 18:19:52 Social History Question Answer Notes LastModified by Organizat ion Details LastModified Time Tobacco Smoking Status Never Smoker VLADISLAV Bates - [facility] 10/07/2023 18:22:17 Have You Had A Flu Shot This Season? Yes Information not available 10/07/2023 Are You Passively Exposed To Smoke? No [email or web address] Information not available 10/07/2023 Have You Recently Traveled Abroad? No [email or web address] Information not available 10/07/2023 Sex: Unknown Functional Status Question Answer Note LastModified by Organizat ion Details LastModified Time Do you use any illicit or recreational drugs? No [email or web address] Information not available 10/07/2023 Do you or have you ever used any other forms of tobacco or nicotine? No [email or web address] Information not available 10/07/2023 What is your level of alcohol consumption? None [email or web address] Information not available 10/07/2023 Are you currently employed? Yes [email or web address] Information not available 10/07/2023 Mental Status None recorded. Family History Nothing Reported. Medical History No medical history recorded. Past Encounters Encounter ID Performer Location Encounter Start Date Encounter Closed Date Diagnosis/Indication Diagnosis SNOMED-CT Code Diagnosis ICD10 Code Diagnosis Note [id number] VLADISLAV Teresa [address] [facility] [address] [place] [address] 10/07/2023 18:05:56 10/07/2023 18:29:26 Acute pharyngitis 589184298 J02.9 Based on your Presentati on, Exam, [...] Price Member ID Guarantor Name 10/07/2023 1 [facility] Faustino Zepeda [id number] Faustino Zepeda Notes Date Note Type Note Provider Name and Address Organization Details Recorded Time 10/07/2023 text/html 28 y/o male here with sore throat for the past day, 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
--- OUTSIDE RECORDS SUMMARY | 2024-08-28 10:01 | XMS_ITS | Clinical Summary ---
Author Organization [facility] Address [address] [place] [address] Care Team Providers Care Physical Testing Supervisor Name Role Phone Ok Bradley MD Primary Care Provider + [phone] Allergies No known active allergies Medications * [...] Plan of Treatment Not on file Insurance [employer] (PPO & INDEMNITY) [facility] [employer] (PPO & INDEMNITY) [facility] Care Teams Physical Testing Supervisor Relationship Specialty Start Date End Date Ok Bradley MD PCP - General Family Medicine 07/04/14
--- OUTSIDE RECORDS SUMMARY | 2024-08-28 10:01 | XMS_ITS | Clinical Summary ---
Author Organization [facility] Address [address] [facility] [address] Care Team Providers Care Gastrointestinal Technician Name Role Phone Unavailable Primary Care Provider Unavailabl e Social History Tobacco Use Types Packs/Day Years Used Date Smoking Tobacco: Never Assessed Sex and Gender Information Value Date Recorded Sex Assigned at Not on file Legal Sex Male 5:09 PM EDT Gender Identity Not on file Sexual Orientation Not on file Plan of Treatment Health Maintenance Due Date Last Done Comments Depression: Screening Annual ly using PHQ-2/9 in Adults 18 yrs or above (or HM Modifier)([facility]) 01/28/2012 Hepatitis C Virus Infection in Adolescents and Adults: Screening (or Modifier) ([facility]) 01/28/2012 SDOH Screening Reminder: Elysia ually for all adults ([facility]) 01/28/2012 Tobacco Smoking Cessation: i n Adults excluding Women: Behavioral and Pharmacotherapy Interventions ([facility]) 01/28/2012 DTaP/Tdap/Td Vaccines ([facility]) (1 - Tdap) 2013 COVID-19 Vaccine Screening: Initial Series and Booster Status ([facility]) (2023- season) 2023 Flu Vaccination: Yearly for ages 18mos through 64 years (or Modifier)([facility]) 09/07/2024 Zoster/Shingles Vaccine Seri es Screening: Adults aged 18+ yrs (or HM Modifiers)([facility]) (1 of 2) 01/28/2044 Pneumococcal Vaccination Scr eening: Pts 0-19 & 19-49 yrs of age ([facility]) Aged Out No longer eligible based on patient's age to complete this topic Medical Devices Not on file
== END 2024-08-28 10:12 | disposition home or self-care (01) ==
PROVIDERS: PCP Family Medicine; Visit Provider Clinical Nurse Specialist Psychiatric/Mental Health
DX: F10.20 Alcohol dependence, uncomplicated (principal)
CPT/HCPCS: 99214

== ENCOUNTER → 2024-08-28 09:27 | Outpatient (BNVA) | payer OTHER, SELFPAY | PROVIDERS: PCP Family Medicine; Visit Provider Clinical Nurse Specialist Psychiatric/Mental Health | DX: F10.20 Alcohol dependence, uncomplicated (principal) | CPT/HCPCS: 99212 ==